=== PATIENT | male | born 1990 | race American Indian/Alaskan Native ===

== ENCOUNTER 2024-10-04 16:44 | Emergency (ER) | payer MEDICAID, SELFPAY ==
[2024-10-04 16:46] VITALS: BMI 27.8
--- NOTE | 2024-10-04 16:49 | EKG_ITS ---
[facility] Test Date: 2024-10-04 Pat Name: SEAN KIRBY Department: Room: - Gender: Male Assisted Living Administrator: : 1990 Requested By: ED Temporary Provider Order Number: [id number] Reading MD: ED Temporary Provider Measurements Intervals [place] Rate: 72 P: 40 CA: 164 QRS: 65 QRSD: 110 T: 69 QT: 438 QTc: 481 Interpretive Statements SINUS RHYTHM WITH SINUS ARRHYTHMIA PROLONGED QT INTERVAL No previous ECG available for comparison /store/S0/[id number]
[2024-10-04 16:58] VITALS: BP 133/62; PULSE 76; RESP 20; TEMP 36.8; O2SAT 99
--- NOTE | 2024-10-04 17:34 | PD.EDRME ---
Rapid Medical Screening Exam E Arrival date/time: 10/04/24 16:44 Chief Complaint: Alcohol Vital signs: Vital Signs Temperature 98.3 F 10/04/24 16:58 Pulse Rate 76 10/04/24 16:58 Respiratory Rate 20 10/04/24 16:58 Blood Pressure 133/62 H 10/04/24 16:58 Pulse Oximetry (%) 99 10/04/24 16:58 Oxygen Delivery Method Room Air 10/04/24 16:58 [facility] Narrative: 34-year-old patient presents to the emergency department with complaint of alcohol withdrawal. Patient states he usually drinks 24 pack of beer daily and he quit cold turkey on October 02, 2024. Patient presents with anxiousness and tremors. As we currently have no rooms long-acting benzo diazepam IM ordered for patient until IV can be started in a room.
[2024-10-04] MEDS: DIAZEPAM INJ 5 MG/ML VIAL 2 ML 10 MG IM (17:39)
[2024-10-04 18:38] LABS: Basophils # (Auto) 0.1 Thou/mm3 (0.0-0.2); Basophils % (Auto) 1 % (0-2.5); Eosinophils % (Auto) 1 % (0-10); Hematocrit 32.8 % (41.0-53.0); Hemoglobin 10.9 g/dL (13.5-16.0); Immature Granulocytes % (Auto) 1 % (0-0); Immature Granulocytes Auto 0.02 Thou/mm3 (0.00-0.00); Lymphocytes # (Auto) 0.4 Thou/mm3 (1.0-4.8); Lymphocytes % (Auto) 9 % (10-50); Mean Corpuscular HGB Conc 33.2 g/dl (31.0-37.0); Mean Corpuscular Hemoglobin 29.2 pg (25.0-35.0); Mean Corpuscular Volume 88 fL (80-100); Monocytes # (Auto) 0.3 Thou/mm3 (0.0-0.8); Monocytes % (Auto) 7 % (0-12); Neutrophils # (Auto) 3.6 Thou/mm3 (1.8-7.7); Neutrophils % (Auto) 83 % (37-80); Nucleated Red Blood Cell % 0 /100 WBC (0); RDW Standard Deviation 54.4 fL (35.1-43.9); Red Blood Count 3.73 Miln/mm3 (4.50-5.90); White Blood Count 4.4 Thou/mm3 (3.8-10.6)
[2024-10-04 18:39] LABS: Platelet Count 66 Thou/mm3 (140-440)
[2024-10-04 19:25] LABS: Slide Review Platelets confirmed
[2024-10-04 19:39] LABS: Alanine Aminotransferase 23 U/L (10-49); Albumin, Serum 3.9 gm/dL (3.5-5.0); Albumin/Globulin Ratio 0.8 (1.2-2.2); Alkaline Phosphatase 116 U/L (46-116); Anion Gap 11 (7-16); Aspartate Amino Transferase 87 U/L (0-34); BUN/Creatinine Ratio 12 Ratio (12-20); Bilirubin,Total 3.1 mg/dL (0.3-1.2); Blood Urea Nitrogen 7 mg/dL (9-23); Calcium 8.6 mg/dL (8.3-10.6); Calcium (Corrected) 8.7 mg/dL (8.5-10.1); Chloride 103 mMol/L (98-107); Creatinine (Component) 0.6 mg/dL (0.6-1.3); Globulin 4.8 gm/dL (2.3-3.5); Glucose 122 mg/dL (74-106); Lipase 51 U/L (12-53); Osmolality,Calculated 276 (275-295); Potassium 3.8 mMol/L (3.4-5.1); Sodium 139 mMol/L (136-145); Total Protein 8.7 gm/dL (5.7-8.2); eGFR > 60 See Note
== END 2024-10-05 01:11 | disposition left against medical advice (07) ==
LOC: SERX 19:20
PROVIDERS: Physician Assistant; Emergency Provider Emergency Medicine; PCP Family Medicine
DX: F10.239 Alcohol dependence with withdrawal, unspecified (principal); I49.8 Other specified cardiac arrhythmias; Z53.29 Procedure and treatment not carried out because of patient's decision for other reasons
CPT/HCPCS: 36415; 80053; 83690; 85025; 93005; 99281; J3360

== ENCOUNTER 2024-10-08 18:12 | Emergency (ER) | payer MEDICAID, SELFPAY ==
[2024-10-08 18:48] VITALS: BP 129/78; PULSE 89; RESP 18; TEMP 36.8; O2SAT 99; BMI 23.8
--- NOTE | 2024-10-08 19:05 | EKG_ITS ---
[facility] Test Date: 2024-10-08 Pat Name: SEAN IKRBY Department: Room: - Gender: Male Chief Librarian Circulation Department: : 1990 Requested By: Lawrence Benito ([facility]) Order Number: [id number] Reading MD: Lawrence Benito ([facility]) Measurements Intervals [place] Rate: 85 P: 72 WI: 174 QRS: 68 QRSD: 114 T: 48 QT: 399 QTc: 477 Interpretive Statements SINUS RHYTHM MODERATE INTRAVENTRICULAR CONDUCTION DELAY [110+ ms QRS DURATION] Compared to ECG 10/04/2024 16:57:09 Intraventricular conduction delay now present Sinus arrhythmia no longer present Prolonged QT interval no longer present /store/S0/[id number]
--- NOTE | 2024-10-08 19:06 | PD.EDRME ---
Rapid Medical Screening Exam RME Arrival date/time: 10/08/24 18:12 34-year-old male past medical history of EtOH with last drink October 03 presents emergency department complaining of restlessness and hallucinations. Chief Complaint: General Adult/Misc Complain Vital signs: Vital Signs Temperature 98.2 F 10/08/24 18:48 Pulse Rate 89 10/08/24 18:48 Respiratory Rate 18 10/08/24 18:48 Blood Pressure 129/78 10/08/24 18:48 Pulse Oximetry (%) 99 10/08/24 18:48 Oxygen Delivery Method Room Air 10/08/24 18:48 Vital signs reviewed by provider: Yes
[2024-10-08] MEDS: LORazepam 0.5 MG TABLET 2 MG PO (19:16)
[2024-10-08 19:42] LABS: Collection Type, Urine Clean Catch; Squamous Epithelial Cell,Urine 0 /hpf (0-5)
[2024-10-08 19:49] LABS: Basophils % (Auto) 1 % (0-2.5); Eosinophils # (Auto) 0.1 Thou/mm3 (0.0-0.5); Eosinophils % (Auto) 2 % (0-10); Hematocrit 32.4 % (41.0-53.0); Hemoglobin 10.8 g/dL (13.5-16.0); Immature Granulocytes % (Auto) 0 % (0-0); Immature Granulocytes Auto 0.02 Thou/mm3 (0.00-0.00); Lymphocytes # (Auto) 0.7 Thou/mm3 (1.0-4.8); Lymphocytes % (Auto) 12 % (10-50); Mean Corpuscular HGB Conc 33.3 g/dl (31.0-37.0); Mean Corpuscular Hemoglobin 29.7 pg (25.0-35.0); Mean Corpuscular Volume 89 fL (80-100); Monocytes # (Auto) 0.7 Thou/mm3 (0.0-0.8); Monocytes % (Auto) 11 % (0-12); Neutrophils # (Auto) 4.2 Thou/mm3 (1.8-7.7); Neutrophils % (Auto) 74 % (37-80); Nucleated Red Blood Cell % 0 /100 WBC (0); Platelet Count 102 Thou/mm3 (140-440); RDW Standard Deviation 55.6 fL (35.1-43.9); Red Blood Count 3.64 Miln/mm3 (4.50-5.90); White Blood Count 5.7 Thou/mm3 (3.8-10.6)
[2024-10-08 19:53] LABS: B-Type Natriuretic Peptide 21 pg/mL (0-100)
[2024-10-08 19:56] LABS: Alanine Aminotransferase 22 U/L (10-49); Albumin, Serum 4.1 gm/dL (3.5-5.0); Albumin/Globulin Ratio 0.9 (1.2-2.2); Alcohol, Blood Medical < 10.0 mg/dL (0-10.0); Alkaline Phosphatase 106 U/L (46-116); Anion Gap 9 (7-16); Aspartate Amino Transferase 59 U/L (0-34); BUN/Creatinine Ratio 10 Ratio (12-20); Bilirubin,Total 3.2 mg/dL (0.3-1.2); Blood Urea Nitrogen 6 mg/dL (9-23); Calcium 9.2 mg/dL (8.3-10.6); Calcium (Corrected) 9.2 mg/dL (8.5-10.1); Carbon Dioxide 25.4 mMol/L (20.0-31.0); Chloride 98 mMol/L (98-107); Creatinine (Component) 0.6 mg/dL (0.6-1.3); Estimated Creatinine Clearance 188.6 mL/min (>60); Globulin 4.7 gm/dL (2.3-3.5); Glucose 117 mg/dL (74-106); Magnesium 1.7 mg/dL (1.6-2.6); Osmolality,Calculated 263 (275-295); Potassium 3.3 mMol/L (3.4-5.1); Sodium 132 mMol/L (136-145); Total Protein 8.8 gm/dL (5.7-8.2); Troponin I < 0.020 ng/mL (0.0-0.045); eGFR > 60 See Note
[2024-10-08 19:57] LABS: INR 1.4 (0.9-1.3); Partial Thromboplastin Time 31.2 Seconds (22.0-36.0); Prothrombin Time 14.9 Seconds (9.0-12.2)
[2024-10-08 19:57] LABS: Bacteria,Urine Rare; Bilirubin,Urine Negative (Negative); Blood,Urine Negative (Negative); Clarity,Urine Clear (Clear/Hazy); Color,Urine Yellow (Lt Yel-Yel); Glucose, Urine Negative (Negative); Ketones,Urine Negative (Negative); Leukocyte Esterase,Urine Negative (Negative); Nitrite,Urine Negative (Negative); PH,Urine 6.5 (5.0-7.0); Protein,Urine Negative (Neg - Trace); RBC,Urine 3 /hpf (0-3); Specific Gravity,Urine 1.006 (1.001-1.035); WBC,Urine 2 /hpf (0-5)
[2024-10-08 20:03] LABS: Amphetamine/Methamp Scrn,U Negative (Negative); Barbiturate Screen,Urine Negative (Negative); Benzodiazepines Screen,Urine Negative (Negative); Benzoylecgonine Screen, Ur Negative (Negative); Fentanyl Screen,Urine Negative (Negative); Opiate Screen,Urine Negative (Negative); THC Screen,Urine Positive (Negative)
--- NOTE | 2024-10-08 21:54 | PD.EDRME ---
Rapid Medical Screening Exam RME Arrival date/time: 10/08/24 18:12 10/08/24 18:12 34-year-old male past medical history of EtOH with last drink October 03 presents emergency department complaining of restlessness and hallucinations. Chief Complaint: General Adult/Misc Complain Time Seen by Provider: 10/08/24 21:43 Vital signs: Vital Signs Temperature 98.2 F 10/08/24 18:48 Pulse Rate 89 10/08/24 18:48 Respiratory Rate 18 10/08/24 18:48 Blood Pressure 129/78 10/08/24 18:48 Pulse Oximetry (%) 99 10/08/24 18:48 Oxygen Delivery Method Room Air 10/08/24 18:48 RME Narrative: 10/08/24 18:12 34-year-old male past medical history of EtOH with last drink October 03 presents emergency department complaining of restlessness and hallucinations.
--- NOTE | 2024-10-08 21:57 | EDNOTE_ITS ---
ED General RME/HPI General Chief complaint: General Adult/Misc Complain Stated complaint: CAN'T SLEEP, HALLUCINATING Time Seen by Provider: 10/08/24 21:43 Source: patient and family Arrival date/time: 10/08/24 18:12 Mode of arrival: ambulatory Limitations: no limitations RME / HPI RME / HPI narrative: 10/08/24 18:12 34-year-old male past medical history of EtOH with last drink October 03 presents emergency department complaining of restlessness and hallucinations. Dr. Bergman?s Main ED Evaluation: 34-year-old male with history of chronic alcohol abuse accompanied by spouse who presents to the emergency department for complaints of restlessness. Patient states he has approximately 7 year history of alcohol abuse with attempts at being sober, longest 1 year, who recently stopped drinking on 10/02/24. Patient states since then he has been tired, anxious, and nervous. He states he has had poor sleep, shaking, and hallucinations. He notes he was seen for similar back in July at [facility] and was not admitted but discharged with 3 detox tabs. He also notes he is pending consultation by mental health due to family history of bipolar disorder and was recommended Abilify but has not taken this medication. Patient adds he has been in AA before and is wanting to pursue detox. Patient denies any other medical complaints. No suicidal ideation. Related Data Previous Rx's ?Medication ?Instructions ?Recorded naproxen 500 mg tablet,delayed 500 mg PO Q12H PRN pain #20 tabs 06/20/18 release chlordiazepoxide HCl 5 mg capsule 5 mg PO TID PRN alcohol withdrawal 10/08/24 #80 caps Allergies Allergy/AdvReac Type Severity Reaction Status Date / Time No Known Allergies Allergy Verified 10/04/24 16:48 Review of Systems Review of Systems Systems Reviewed: All systems reviewed, normal except as documented Past Medical History Social History SMOKING STATUS: Current every day smoker SUBSTANCE USE: does not use ED Exam Narrative Physical exam: GENERAL APPEARANCE: alert and oriented x 4, well-developed, well-nourished, no acute distress VITALS: All vitals were reviewed and the pulse ox is 99% on room air, which is normal according to my interpretation. HEENT: normocephalic, atraumatic NECK: supple LUNGS: no respiratory distress, normal effort HEART: good peripheral perfusion ABDOMEN: non distended EXTREMITIES: atraumatic NEUROLOGIC: awake; alert and oriented x4; cranial nerves II-XII grossly intact PSYCHIATRIC: appropriate mood and affect SKIN: warm, dry, normal color; no rashes General Limitations: Present no limitations Course Quality Measures none Orders Category Date Time Status EKG (ED ONLY) *Do not use* NOW Care 10/08/24 19:05 Completed EKG (ED Only) Stat Exams 10/08/24 19:05 Draft Alcohol, Blood Medical Stat Lab 10/08/24 19:21 Completed B-Type Natriuretic Peptide Stat Lab 10/08/24 19:21 Completed CBC Stat Lab 10/08/24 19:21 Completed Comprehensive Metabolic Panel Stat Lab 10/08/24 19:21 Completed Drug Screen,Urine Stat Lab 10/08/24 19:25 Completed Magnesium Stat Lab 10/08/24 19:21 Completed Partial Thromboplastin Time Stat Lab 10/08/24 19:21 Completed Prothrombin Time with INR Stat Lab 10/08/24 19:21 Completed Troponin I Stat Lab 10/08/24 19:21 Completed Urinalysis Stat Lab 10/08/24 19:25 Completed LORazepam [Ativan] Med 10/08/24 19:05 Discontinued 2 mg PO X1 ONE Vital Signs Vital signs: Vital Signs Temperature 98.2 F 10/08/24 18:48 Pulse Rate 89 10/08/24 18:48 Respiratory Rate 18 10/08/24 18:48 Blood Pressure 129/78 10/08/24 18:48 Pulse Oximetry (%) 99 10/08/24 18:48 Oxygen Delivery Method Room Air 10/08/24 18:48 [facility] Patient data External records reviewed:: [facility] previous records Clinical information provided by:: patient Social determinants that could affect healthcare access:: alcohol use Patient has the following chronic illnesses:: Chronic alcohol use How is presenting disease/condition affected by chronic disease/condition?: c aused by Evaluation data The following diagnostics were reviewed and interpreted by me:: lab results and EKG tracing(s) (done at 1915, NSR, rate of 85, normal axis, no ectopy, no acute ischemia) Lab and/or radiology exams considered but not ordered:: None Interpretation Summary: See [facility] Medications Medications considered but not ordered:: None Medication administrations:: Medication Administration History Discontinued Medications Lorazepam (Lorazepam 0.5 Mg Tablet) 2 mg PO X1 ONE Stop: 10/08/24 19:06 Last Admin: 10/08/24 19:16 Dose: 2 mg Documented By: As above, if any Consultations Consultation(s) initiated? (list below): No Diagnosis Differential Diagnosis ED Complaint MDM: alcohol withdrawal, dehydration, electrolyte abnormality Most likely diagnosis given after review of the tests above:: see below Admission Indicated Admission indicated?: not indicated Explain why admission is indicated or not indicated:: Admission criteria not met. Admission Request Was there a request for admission?: No Disposition Plan Disposition Plan: Discharge Discharge Attestation Discharge Attestation: The patient and all family members were given an opportunity to ask questions and understood the discharge instructions. Discharge instructions specifically effects, indications for sooner follow up or return to the emergency department, and the expected course of current diagnosis. Patient condition: Stable Medical Decision Making MDM Narrative MDM Narrative: Scribe Attestation: I, Noam Mckeon, am scribing for and in the presence of Dr. Bergman. Provider Notation: Although this document has been carefully reviewed, there may still be some phonetic and other typographical errors. These errors are purely grammatical due to imperfections in the software program and should not be construed in any way to compromise the substance of the patient's medical care during this visit. Differential Diagnosis Differential Diagnosis: alcohol withdrawal, dehydration, electrolyte abnormality Medical Records Medical records reviewed: Yes I reviewed the patient's medical records. Lab Data Lab results reviewed: Yes I reviewed the patient's lab results. 10/08/24 19:21 10/08/24 19:21 Labs: Lab Results 10/08/24 10/08/24 Range/Units 19:21 19: WBC 5.7 (3.8-10.6) Thou/mm3 RBC 3.64 L (4.50-5.90) Miln/mm3 Hgb 10.8 L (13.5-16.0) g/dL Hct 32.4 L (41.0-53.0) % MCV 89 (80-100) fL MCH 29.7 (25.0-35.0) pg MCHC 33.3 (31.0-37.0) g/dl RDW Std Deviation 55.6 H (35.1-43.9) fL Plt Count 102 L D (140-440) Thou/mm3 Neut % (Auto) 74 (37-80) % Lymph % (Auto) 12 (10-50) % [place] % (Auto) 11 (0-12) % Eos % (Auto) 2 (0-10) % Baso % (Auto) 1 (0-2.5) % Neut # (Auto) 4.2 (1.8-7.7) Thou/mm3 Lymph # (Auto) 0.7 L (1.0-4.8) Thou/mm3 [place] # (Auto) 0.7 (0.0-0.8) Thou/mm3 Eos # (Auto) 0.1 (0.0-0.5) Thou/mm3 Baso # (Auto) 0.0 (0.0-0.2) Thou/mm3 Immature Gran # (Auto) 0.02 H (0.00-0.00) Thou/mm3 Absolute Nucleated RBC 0.00 (0.00-0.00) Thou/mm3 Immature Gran % 0 (0-0) % Nucleated RBC % 0 (0) /100 WBC PT 14.9 H (9.0-12.2) Seconds INR 1.4 H (0.9-1.3) APTT 31.2 (22.0-36.0) Seconds Sodium 132 L (136-145) mMol/L Potassium 3.3 L (3.4-5.1) mMol/L Chloride 98 (98-107) mMol/L Carbon Dioxide 25.4 (20.0-31.0) mMol/L Anion Gap 9 (7-16) BUN 6 L (9-23) mg/dL Creatinine 0.6 (0.6-1.3) mg/dL Estim Creat Clear Calc 188.6 (>60) mL/min eGFR > 60 (60 - ) See Note BUN/Creatinine Ratio 10 L (12-20) Ratio Glucose 117 H (74-106) mg/dL Calculated Osmolality 263 L (275-295) Calcium 9.2 (8.3-10.6) mg/dL Corrected Calcium 9.2 (8.5-10.1) mg/dL Magnesium 1.7 (1.6-2.6) mg/dL Total Bilirubin 3.2 H (0.3-1.2) mg/dL AST 59 H (0-34) U/L ALT 22 (10-49) U/L Alkaline Phosphatase 106 (46-116) U/L Troponin I < 0.020 (0.0-0.045) ng/mL B-Natriuretic Peptide 21 (0-100) pg/mL Total Protein 8.8 H (5.7-8.2) gm/dL Albumin 4.1 (3.5-5.0) gm/dL Globulin 4.7 H (2.3-3.5) gm/dL Albumin/Globulin Ratio 0.9 L (1.2-2.2) Ur Collection Type Clean Catch Urine Color Yellow (Lt Yel-Yel) Urine Clarity Clear (Clear/Hazy) Urine pH 6.5 (5.0-7.0) Ur Specific Star 1.006 (1.001-1.035) Urine Protein Negative (Neg - Trace) Urine Glucose (UA) Negative (Negative) Urine Ketones Negative (Negative) Urine Blood Negative (Negative) Urine Nitrite Negative (Negative) Urine Bilirubin Negative (Negative) Urine Urobilinogen (Auto) 4.0 (0.0-1.0) mg/dL Ur Leukocyte Esterase Negative (Negative) Urine RBC 3 (0-3) /hpf Urine WBC 2 (0-5) /hpf Ur Squamous Epith Cells 0 (0-5) /hpf Urine Bacteria Rare (None) Urine Opiates Screen Negative (Negative) Urine Fentanyl Screen Negative (Negative) Ur Barbiturates Screen Negative (Negative) U Amphetamin/Meth Scrn Negative (Negative) U Benzodiazepines Scrn Negative (Negative) U Cocaine Metab Screen Negative (Negative) U Marijuana (THC) Screen Positive A (Negative) Ethyl Alcohol < 10.0 (0-10.0) mg/dL Discharge Plan Plan Patient Disposition: HOME (Self Care) Disposition Comment: Stable for discharge Patient condition on transfer: Stable Prescriptions/Referrals Prescriptions/Med Rec: New chlordiazepoxide HCl 5 mg capsule 5 mg PO TID PRN (Reason: alcohol withdrawal) Qty: 80 0RF Rx Instructions: 25 mg p.o. twice daily x 2 days, followed by 20 mg p.o. twice daily y x 3 days, followed by 15 mg p.o. twice daily x 3 days, followed by 10 mg p.o. twice daily x 3 days, followed by 5 mg p.o. twice daily x 3 days No Action naproxen 500 mg tablet,delayed release (DR/EC) 500 mg PO Q12H PRN (Reason: pain) Qty: 20 0RF Referrals: Damon Anaya MD [Primary Care Provider] - In 1 week Problem List Clinical Impression: Alcohol withdrawal Patient/Caregiver Discharge Instructions Discharge Activity: activity as tolerated Education Materials: Chlordiazepoxide capsules, Alcohol Withdrawal: What to Expect Additional Instructions: Take 25 mg of the chlordiazepoxide 3 times per day for 2 days followed by 20 mg 3 times per day x 3 days followed by 15 mg 3 times a day for 3 days followed by 10 mg 3 times per day for 3 days followed by 5 mg/day x 3 days. It is really important that you do not drink alcohol while taking these pills You should figure out a 30-day inpatient alcohol treatment rehab center. I would go to that as soon as possible Please return to the emergency department for any worsening or any further medical problems Otherwise please follow-up with your primary care doctor within the next several days Print Language: Ecuad[place] Stand Alone Forms: Stacy Award Info., Patient Portal Info Letter
== END 2024-10-08 22:11 | disposition home or self-care (01) ==
PROVIDERS: Emergency Provider Emergency Medicine; PCP Family Medicine
DX: F10.939 Alcohol use, unspecified with withdrawal, unspecified (principal); I45.89 Other specified conduction disorders; Y90.0 Blood alcohol level of less than 20 mg/100 ml
CPT/HCPCS: 36415; 80053; 80307; 80320; 81001; 83735; 83880; 84484; 85025; 85610; 85730; 93005; 99283; A9270; G0480